=== PATIENT | male | born 1975 | race Caucasian/White ===

== ENCOUNTER 2016-12-13 00:48 | Emergency (ER) | payer OTHER ==
[2016-12-13 04:01] LABS: HEMOGLOBIN 17.7 gm/dl (14.0-17.5); RED BLOOD COUNT 5.97 M/UL (4.20-5.50); WHITE BLOOD COUNT 11.7 K/UL (4.5-11.0)
[2016-12-13 04:29] LABS: BUN/CREATININE RATIO 19 (0-10)
[2017-04-07] MEDS ORDERED: PERCOCET 5-3251 EACH PO (09:08)
[2017-04-07] MEDS ORDERED: TIZANIDINE HCL4 MG PO (09:08)
[2017-04-07] MEDS ORDERED: NEURONTIN 400400 MG PO (09:09)
[2017-04-07] MEDS ORDERED: SINGULAIR10 MG PO (09:09)
[2017-04-07] MEDS ORDERED: CLARITIN10 MG PO (09:10)
[2017-04-07] MEDS ORDERED: LISINOPRIL10 MG PO (09:10)
[2017-04-07] MEDS ORDERED: PRILOSEC OTC20 MG PO (09:10)
[2017-04-07] MEDS ORDERED: IBUPROFEN800 MG PO (14:24)
[2017-04-07] MEDS ORDERED: CLEOCIN HCL300 MG PO (14:24)
[2017-04-07] MEDS ORDERED: OXYCODONE HCL15 MG PO (14:25)
[2017-04-07] MEDS ORDERED: VITAMIN D350000 UNIT PO (14:26)
[2017-04-07] MEDS ORDERED: VITAMIN C 500500 MG PO (14:26)
== END 2016-12-13 06:01 | disposition home or self-care (01) ==
LOC: ER1 00:48
PROVIDERS: Emergency Medicine
DX: R51 Headache (principal); R11.2 Nausea with vomiting, unspecified; R19.7 Diarrhea, unspecified; F17.210 Nicotine dependence, cigarettes, uncomplicated; Z88.6 Allergy status to analgesic agent; Z88.0 Allergy status to penicillin; Z79.899 Other long term (current) drug therapy
CPT/HCPCS: 36415; 80053; 81001; 82150; 83605; 83690; 85025; 96361; 96374; 96375; 99284; J2270; J2405; J7030; Q9962